=== PATIENT | female | born 1990 | race Caucasian/White ===

== ENCOUNTER 2023-11-21 12:25 | Emergency (ER) | payer BC ==
[~2023-11-21] VITALS: Ht 165.1 cm; Wt 86.2 kg
[2023-11-21 12:50] VITALS: BP 130/66; PULSE 80; RESP 16; TEMP 98.4; O2SAT 98
[2023-11-21 13:38] LABS: BASOPHILS % (AUTO) 0.3 % (0.0-2.0); EOSINOPHILS # (AUTO) 0.2 K/uL (0-0.4); EOSINOPHILS % (AUTO) 2.1 % (0.0-4.0); HEMATOCRIT 37.1 % (36-48); HEMOGLOBIN 12.3 g/dL (12.0-16.0); LYMPHOCYTES # (AUTO) 2.3 K/uL (2.5-16.5); LYMPHOCYTES % (AUTO) 27.5 % (20.5-51.1); MEAN CORPUSCULAR HEMOGLOBIN 27 pg (27-31); MEAN CORPUSCULAR HGB CONC 33 g/dL (33-37); MONOCYTES # (AUTO) 0.5 K/uL (0.8-1.0); MONOCYTES % (AUTO) 5.5 % (1.7-9.3); NEUTROPHILS # (AUTO) 5.3 K/uL (1.8-7.7); NEUTROPHILS % (AUTO) 64.6 % (42.2-75.2); PLATELET COUNT (AUTO) 284 K/uL (140-450); RED BLOOD CELL COUNT(AUTO) 4.58 MIL/uL (4.20-5.40); RED CELL DISTRIBUTION WIDTH 14.2 % (11.6-13.7); WHITE BLOOD COUNT (AUTO) 8.2 K/uL (4.8-10.8)
[2023-11-21] MEDS: KETOROLAC 30 MG/ML VIAL IVP ONE (13:59)
[2023-11-21 14:07] LABS: ANION GAP 12.7 (8-16); CALCIUM 8.6 mg/dL (8.5-10.1); CREATININE 0.5 mg/dL (0.6-1.3); INR 0.93 (0.8-1.2); PARTIAL THROMBOPLASTIN TIME 23.9 secs (22-35.6); POTASSIUM 3.7 mmol/L (3.5-5.1); PROTHROMBIN TIME 9.8 secs (10.8-13.4)
[2023-11-21 14:10] LABS: ALANINE AMINOTRANSFERASE 17 U/L (12-78); ALBUMIN 3.2 g/dL (3.4-5.0); ALKALINE PHOSPHATASE 48 U/L (50-136); ASPARTATE AMINOTRANSFERASE 13 U/L (15-37); BILIRUBIN,DIRECT 0.1 mg/dL (0.0-0.3); TOTAL BILIRUBIN 0.2 mg/dL (0.0-1.0); TOTAL PROTEIN, SERUM 6.9 g/dL (6.4-8.2)
[2023-11-21 15:08] LABS: D-DIMER < 100 ng/ml (0-400)
[2023-11-21] MEDS ORDERED: IBUP-2213 PO (15:38)
[2023-11-21 16:00] VITALS: BP 110/62; PULSE 74; RESP 16; TEMP 36.78072; O2SAT 99
== END 2023-11-21 16:00 | disposition home or self-care (01) ==
LOC: MED 12:25
DX: M94.0 Chondrocostal junction syndrome [Tietze] (principal); Z79.1 Long term (current) use of non-steroidal anti-inflammatories (NSAID)
CPT/HCPCS: 36415; 71045; 80048; 80076; 83880; 84484; 85025; 85379; 85610; 85730; 93005; 96374; 99285; J1885; Q0092